=== PATIENT | male | born 1995 | race Caucasian/White ===

== ENCOUNTER 2018-04-20 22:54 | Emergency (ER) | payer OTHER ==
[~2018-04-20] VITALS: Ht 182.9 cm; Wt 120.2 kg
[2018-04-20 23:04] VITALS: Ht 182.9 cm; Wt 120.2 kg
[2018-04-21 01:10] VITALS: BP 126/66
== END 2018-04-21 01:10 | disposition home or self-care (01) ==
LOC: ED 22:54
DX: S82.61XA Displaced fracture of lateral malleolus of right fibula, initial encounter for closed fracture (principal); X50.1XXA Overexertion from prolonged static or awkward postures, initial encounter; Y93.89 Activity, other specified; Y92.89 Other specified places as the place of occurrence of the external cause; Y99.8 Other external cause status